=== PATIENT | male | born 1975 | race Two or more races ===

== ENCOUNTER 2023-09-08 21:38 | Emergency (ER) | payer MEDICAID, OTHER ==
[~2023-09-08] VITALS: Ht 177.8 cm; Wt 111.4 kg
[2023-09-08 21:56] VITALS: BP 138/83; PULSE 82; RESP 18; TEMP 97.4
[2023-09-08 23:33] LABS: Urine Bacteria NONE SEEN /hpf (None Seen); Urine Blood Negative /uL (Negative); Urine Clarity Clear (Clear); Urine Color Yellow (Yellow); Urine Mucus FEW (None Seen); Urine Protein, UAD TRACE (Negative); Urine Specific Gravity 1.035 (1.001-1.035); Urine WBC 1 /hpf (0 - 3); Urine pH 5.5 (5.0-8.0)
[2023-09-09] MEDS ORDERED: DOXY-448 PO
[2023-09-09 00:39] VITALS: O2SAT 97
[2023-09-09] MEDS: cefTRIAXone SOD 1,000 MG VL IM ONE (00:55)
[2023-09-10 08:07] LABS: RPR Non Reactive (Non Reactive)
[2023-09-10 23:06] LABS: Chlamydia Trachomatis, NAA Negative (Negative); Neisseria gonorrhoeae, NAA Negative (Negative)
== END 2023-09-09 01:10 | disposition home or self-care (01) ==
LOC: ER 21:38
DX: N48.22 Cellulitis of corpus cavernosum and penis (principal); Z20.2 Contact with and (suspected) exposure to infections with a predominantly sexual mode of transmission
CPT/HCPCS: 81001; 86592; 87491; 87591; 96372; 99283; J0696

== ENCOUNTER 2023-09-23 20:18 | Emergency (ER) | payer MEDICAID ==
[~2023-09-23] VITALS: Ht 177.8 cm; Wt 114.9 kg
[~2023-09-23 20:18] MED LIST: DOXY-448 PO
[2023-09-23 21:47] LABS: Urine Bacteria NONE SEEN /hpf (None Seen); Urine Blood Negative /uL (Negative); Urine Clarity Clear (Clear); Urine Color Yellow (Yellow); Urine Protein, UAD Negative (Negative); Urine Specific Gravity 1.015 (1.001-1.035); Urine Urobilinogen Normal (Negative); Urine WBC <1 /hpf (0 - 3)
[2023-09-24] MEDS ORDERED: ACYC400T16 PO (00:55)
[2023-09-24] MEDS: cefTRIAXone SOD 1,000 MG VL IM ONE (02:21)
[2023-09-24 03:07] VITALS: BP 140/95; PULSE 73; RESP 19; TEMP 97.8; O2SAT 100
== END 2023-09-24 03:08 | disposition home or self-care (01) ==
LOC: ER 20:18
DX: Z20.828 Contact with and (suspected) exposure to other viral communicable diseases (principal); Z20.2 Contact with and (suspected) exposure to infections with a predominantly sexual mode of transmission; Z79.2 Long term (current) use of antibiotics; Z79.899 Other long term (current) drug therapy
CPT/HCPCS: 81001; 96372; 99283; J0696